=== PATIENT | female | born 1960 | race Two or more races ===

== ENCOUNTER 2018-09-15 09:15 | Outpatient (CLI) | payer MEDICARE, MEDICAID | END 2018-09-15 23:59 | disposition home or self-care (01) | LOC: MSC 09:15 | PROVIDERS: ATTEND Anesthesiology | DX: M54.16 Radiculopathy, lumbar region (principal); M40.299 Other kyphosis, site unspecified; M62.830 Muscle spasm of back; G89.4 Chronic pain syndrome; M19.012 Primary osteoarthritis, left shoulder; F31.9 Bipolar disorder, unspecified; Z79.891 Long term (current) use of opiate analgesic; Z79.899 Other long term (current) drug therapy ==